=== PATIENT | male | born 1965 | race Caucasian/White ===

== ENCOUNTER 2019-03-06 07:44 | Day surgery (SDC) | payer BC ==
[~2019-03-06] VITALS: Ht 170.2 cm; Wt 207.6 kg
[~2019-03-06 07:44] MED LIST: ATEN25 PO; CLON.1 PO; DIAZ5 PO; KETO10 PO; LOSA25 PO; Prinivil10 MG PO; Toprol Xl25 MG PO
--- NOTE | 2019-03-06 08:17 | NUR ---
03/06/19 0817 Vanessa Price FIRST IV UNSUCCESS IN R HAND SECOND IV SUCCESS IN R HAND
--- NOTE | 2019-03-06 10:34 | NUR ---
03/06/19 Syed4 Jim Blankenship FAXED RX TO PATIENT'S PHARMACY PER HIS REQUEST.
--- NOTE | 2019-03-06 10:40 | NUR ---
03/06/19 1040 Leona Hui LATE ENTRY: DURING UPPER PT COUGHING, PT APNIC T/O, JAW THRUST APPLIED. VSS. AT START OF COLON PT COUGHING, O2 SAT DROPPED DOWN TO MID 70S. ORAL AIRWAY PLACED. 2ND RN FOR AIRWAY SUPPORT REQUESTED. ORSC.OKG & ORSC.RXS INTO ROOM. SWITCHED PT TO NONREBREATHERS AT 10L. PT HAS LOTS OF SECRETIONS. ORALLY SUCTIONED WITH LOTS OF CLEAR SECRETIONS. SEE EMAR FOR MED ADMINSTRATION PER ORDER. PT COUGHING OCCASIONALLY T/O PROCEDURE. OCCASIONAL JAW THRUST/CHIN LIFT PROVIDED FOR AIRWAY SUPPORT. PT VSS STABLE T/O REST OF PROCEDURE WITH O2 SATURATION IN THE MID TO HIGH 90S T/O.
== END 2019-03-06 10:26 | disposition home or self-care (01) ==
LOC: ORSCSDS 07:44
PROVIDERS: Student in an Organized Health Care Education/Training Program
PROC: 0DBP8ZX Excision of Rectum, Via Natural or Artificial Opening Endoscopic, Diagnostic (ICD-10-PCS; principal; 2019-03-06 09:00)
PROC: 0DB58ZX Excision of Esophagus, Via Natural or Artificial Opening Endoscopic, Diagnostic (ICD-10-PCS; principal; 2019-03-06 09:00)
PROC: 0DB68ZX Excision of Stomach, Via Natural or Artificial Opening Endoscopic, Diagnostic (ICD-10-PCS; principal; 2019-03-06 09:00)
PROC: 0DBL8ZX Excision of Transverse Colon, Via Natural or Artificial Opening Endoscopic, Diagnostic (ICD-10-PCS; principal; 2019-03-06 09:00)
PROC: 0DBN8ZX Excision of Sigmoid Colon, Via Natural or Artificial Opening Endoscopic, Diagnostic (ICD-10-PCS; principal; 2019-03-06 09:00)
DX: K21.0 Gastro-esophageal reflux disease with esophagitis (principal); K29.70 Gastritis, unspecified, without bleeding; Z12.11 Encounter for screening for malignant neoplasm of colon; D12.3 Benign neoplasm of transverse colon; K63.5 Polyp of colon; K62.1 Rectal polyp; I10 Essential (primary) hypertension; F17.210 Nicotine dependence, cigarettes, uncomplicated; E66.9 Obesity, unspecified; Z68.35 Body mass index [BMI] 35.0-35.9, adult; Z79.899 Other long term (current) drug therapy
CPT/HCPCS: 88305; 88312; 88342; J2704; J7120

== ENCOUNTER 2019-03-26 23:38 | Emergency (ER) | payer BC ==
[~2019-03-26] VITALS: Ht 167.6 cm; Wt 95.2 kg
[2019-03-27 01:42] LABS: BASOPHILS ABSOLUTE AUTO 0.08 K/mm3 (0.00-0.23); BASOPHILS PERCENT AUTO 1 % (0-2); EOSINOPHILS ABSOLUTE AUTO 0.43 K/mm3 (0.00-0.68); EOSINOPHILS PERCENT AUTO 3 % (0-6); Hematocrit 45.3 % (37.0-53.0); Hemoglobin 15.4 g/dL (13.5-17.5); IMMATURE GRAN ABSOLUTE AUTO 0.07 K/mm3 (0.00-0.10); IMMATURE GRAN PERCENT AUTO 1 % (0-1); LYMPHOCYTES ABSOLUTE AUTO 4.09 K/mm3 (0.84-5.20); LYMPHOCYTES PERCENT AUTO 32 % (21-46); MONOCYTES ABSOLUTE AUTO 1.27 K/mm3 (0.16-1.47); MONOCYTES PERCENT AUTO 10 % (4-13); Mean Corpuscular HGB 31.1 pg (26.0-34.0); Mean Corpuscular Volume 92 fL (80-100); Mean Platelet Volume 11.5 fL (9.1-12.4); NEUTROPHILS PERCENT AUTO 54 % (41-73); Platelet Count 294 K/mm3 (150-400); RDW Coefficient Variation 13.2 % (11.7-14.2); RDW Standard Deviation 44.5 fL (35.1-46.3); Red Blood Cell Count 4.95 M/mm3 (4.30-5.90); White Blood Cell Count 12.94 K/mm3 (4.00-11.30)
[2019-03-27 01:49] LABS: Alanine Aminotransfer (ALT/SGP 58 U/L (12-78); Albumin, Blood 3.5 g/dL (3.4-5.0); Albumin/Globulin Ratio 0.9 (0.8-1.8); Alk Phos 54 U/L (50-136); Anion Gap 6 mmol/L (6-16); Aspartate Aminotrans (AST/SGOT 23 U/L (12-37); Bilirubin, Total 0.3 mg/dL (0.1-1.0); Blood Urea Nitrogen 22 mg/dL (8-24); Bun/Creatinine Ratio 23.7 (12.0-20.0); CO2, Blood 28 mmol/L (21-32); Calcium, Blood 9.2 mg/dL (8.5-10.1); Chloride, Blood 110 mmol/L (98-108); Creatinine, Blood 0.93 mg/dL (0.60-1.20); Globulin, Blood 3.9 g/dL (2.2-4.0); Glomerular Filtration Rate >60 (60-); Glucose, Blood 122 mg/dL (70-99); Potassium, Blood 3.4 mmol/L (3.5-5.5); Sodium, Blood 144 mmol/L (136-145); Total Protein, Blood 7.4 g/dL (6.4-8.2)
[2019-03-27 03:14] LABS: Source, Urine Clean Catch
[2019-03-27 03:16] LABS: Bilirubin, Urine Neg (Neg); Blood, Urine 2+ (Neg); Glucose Qualitative, Urine Neg (Neg); Ketones, Urine Neg (Neg); Leukocyte Esterase, Urine 2+ (Neg); Nitrite, Urine Pos (Neg); Protein, Urine 1+ (Neg); Urobilinogen, Urine NORM (Normal)
[2019-03-27 03:17] LABS: Appearance, Urine Hazy (Clear); Color, Urine Yellow (P-Yellow)
[2019-03-27 03:23] LABS: Bacteria Many /hpf; Red Blood Cells, Urine Rare /hpf (0-2); Squamous Epithelial Cells Not Seen /hpf (Few)
[2019-03-27] MEDS ORDERED: OMEPRAZOLE20 MG (04:28)
[2019-03-27] MEDS ORDERED: Macrobid 100 M100 MG PO (05:56)
== END 2019-03-27 06:22 | disposition home or self-care (01) ==
LOC: ER 23:38
PROVIDERS: Emergency Medicine
DX: N39.0 Urinary tract infection, site not specified (principal); Z88.2 Allergy status to sulfonamides; Z79.899 Other long term (current) drug therapy; F17.200 Nicotine dependence, unspecified, uncomplicated
CPT/HCPCS: 36415; 74176; 80053; 81001; 83605; 83690; 85025; 87040; 87077; 87086; 87186; 93005; 93010; 96365; 96375; 99284-25; J0696; J1885; J7030

== ENCOUNTER → 2019-06-05 | Outpatient (CLI) | payer BC ==
[~2019-06-05] MED LIST changes: +Macrobid 100 M100 MG PO; +OMEPRAZOLE20 MG
[2019-06-05 09:01] LABS: BASOPHILS ABSOLUTE AUTO 0.06 K/mm3 (0.00-0.23); BASOPHILS PERCENT AUTO 1 % (0-2); EOSINOPHILS ABSOLUTE AUTO 0.34 K/mm3 (0.00-0.68); EOSINOPHILS PERCENT AUTO 3 % (0-6); Hematocrit 44.3 % (37.0-53.0); Hemoglobin 15.4 g/dL (13.5-17.5); IMMATURE GRAN ABSOLUTE AUTO 0.08 K/mm3 (0.00-0.10); IMMATURE GRAN PERCENT AUTO 1 % (0-1); LYMPHOCYTES ABSOLUTE AUTO 3.54 K/mm3 (0.84-5.20); LYMPHOCYTES PERCENT AUTO 29 % (21-46); MONOCYTES ABSOLUTE AUTO 0.84 K/mm3 (0.16-1.47); MONOCYTES PERCENT AUTO 7 % (4-13); Mean Corpuscular HGB 31.4 pg (26.0-34.0); Mean Corpuscular HGB Conc 34.8 g/dL (31.5-36.5); Mean Corpuscular Volume 90 fL (80-100); Mean Platelet Volume 11.4 fL (9.1-12.4); NEUTROPHILS ABSOLUTE AUTO 7.18 K/mm3 (1.96-9.15); NEUTROPHILS PERCENT AUTO 60 % (41-73); Platelet Count 270 K/mm3 (150-400); RDW Coefficient Variation 13.5 % (11.7-14.2); RDW Standard Deviation 44.4 fL (35.1-46.3); White Blood Cell Count 12.04 K/mm3 (4.00-11.30)
[2019-06-05 10:45] LABS: Anion Gap 7 mmol/L (6-16); Blood Urea Nitrogen 16 mg/dL (8-24); Bun/Creatinine Ratio 21.8 (12.0-20.0); CO2, Blood 26 mmol/L (21-32); Calcium, Blood 8.4 mg/dL (8.5-10.1); Chloride, Blood 109 mmol/L (98-108); Creatinine, Blood 0.73 mg/dL (0.60-1.20); Glomerular Filtration Rate >60 (60-); Glucose, Blood 168 mg/dL (70-99); Potassium, Blood 4.1 mmol/L (3.5-5.5); Sodium, Blood 142 mmol/L (136-145)
== END ==
LOC: LAB EV 08:57 → LAB SHORT 08:57
PROVIDERS: Physician Assistant Medical
DX: R05 Cough (principal)
CPT/HCPCS: 80048; 85025; 85379

== ENCOUNTER 2019-09-28 12:54 | Emergency (ER) | payer BC ==
[~2019-09-28] VITALS: Ht 167.6 cm; Wt 104.2 kg
[~2019-09-28 12:54] MED LIST changes: -NITR.4SL SL
[2019-09-28] MEDS ORDERED: NITR.4SL SL (19:00)
== END 2019-09-28 15:36 | disposition left against medical advice (07) ==
LOC: ER 12:54
DX: I10 Essential (primary) hypertension (principal)
CPT/HCPCS: 71046; 84484; 93005; 93010; 99283-25

== ENCOUNTER 2019-09-28 16:33 | Emergency (ER) | payer BC ==
[~2019-09-28] VITALS: Ht 167.6 cm; Wt 99.8 kg
[2019-09-28] MEDS ORDERED: NITR.4SL SL (19:00)
== END 2019-09-28 19:09 | disposition home or self-care (01) ==
LOC: ER 16:33
DX: I20.9 Angina pectoris, unspecified (principal); I10 Essential (primary) hypertension; Z88.2 Allergy status to sulfonamides; Z79.899 Other long term (current) drug therapy; F17.200 Nicotine dependence, unspecified, uncomplicated
CPT/HCPCS: 96374; 96375; 99283-25; J1885; J3010

== ENCOUNTER → 2019-09-28 | Outpatient (CLI) | payer BC ==
[~2019-09-28] MED LIST changes: +NITR.4SL SL
[2019-09-28 11:17] LABS: BASOPHILS ABSOLUTE AUTO 0.07 K/mm3 (0.00-0.23); BASOPHILS PERCENT AUTO 1 % (0-2); EOSINOPHILS ABSOLUTE AUTO 0.38 K/mm3 (0.00-0.68); EOSINOPHILS PERCENT AUTO 3 % (0-6); Hematocrit 47.9 % (37.0-53.0); Hemoglobin 16.6 g/dL (13.5-17.5); IMMATURE GRAN ABSOLUTE AUTO 0.05 K/mm3 (0.00-0.10); IMMATURE GRAN PERCENT AUTO 0 % (0-1); LYMPHOCYTES ABSOLUTE AUTO 3.69 K/mm3 (0.84-5.20); LYMPHOCYTES PERCENT AUTO 31 % (21-46); MONOCYTES ABSOLUTE AUTO 1.03 K/mm3 (0.16-1.47); MONOCYTES PERCENT AUTO 9 % (4-13); Mean Corpuscular HGB 31.4 pg (26.0-34.0); Mean Corpuscular HGB Conc 34.7 g/dL (31.5-36.5); Mean Corpuscular Volume 91 fL (80-100); Mean Platelet Volume 11.8 fL (9.1-12.4); NEUTROPHILS ABSOLUTE AUTO 6.86 K/mm3 (1.96-9.15); NEUTROPHILS PERCENT AUTO 57 % (41-73); Platelet Count 269 K/mm3 (150-400); RDW Standard Deviation 43.2 fL (35.1-46.3); Red Blood Cell Count 5.28 M/mm3 (4.30-5.90); White Blood Cell Count 12.08 K/mm3 (4.00-11.30)
[2019-09-28 11:30] LABS: Alanine Aminotransfer (ALT/SGP 80 U/L (12-78); Albumin, Blood 3.7 g/dL (3.4-5.0); Albumin/Globulin Ratio 0.9 (0.8-1.8); Alk Phos 71 U/L (40-126); Anion Gap 9 mmol/L (6-16); Aspartate Aminotrans (AST/SGOT 40 U/L (12-37); Bilirubin, Total 0.5 mg/dL (0.1-1.0); Blood Urea Nitrogen 14 mg/dL (8-24); Bun/Creatinine Ratio 15.6 (12.0-20.0); CO2, Blood 25 mmol/L (21-32); Calcium, Blood 8.6 mg/dL (8.5-10.1); Chloride, Blood 104 mmol/L (98-108); Globulin, Blood 3.9 g/dL (2.2-4.0); Glomerular Filtration Rate >60 (60-); Glucose, Blood 147 mg/dL (70-99); Potassium, Blood 3.9 mmol/L (3.5-5.5); Sodium, Blood 138 mmol/L (136-145); Total Protein, Blood 7.6 g/dL (6.4-8.2)
[2019-09-28 11:32] LABS: Troponin I <0.017 ng/mL (0.000-0.040)
== END | disposition home or self-care (01) ==
LOC: LAB EV 11:13 → LAB SHORT 11:13
PROVIDERS: Physician Assistant
DX: R07.9 Chest pain, unspecified (principal); R73.9 Hyperglycemia, unspecified
CPT/HCPCS: 80053; 83036; 84484; 85025

== ENCOUNTER 2020-12-29 16:40 | Emergency (ER) | payer OTHER ==
[~2020-12-29] VITALS: Ht 167.6 cm; Wt 95.2 kg
[~2020-12-29 16:40] MED LIST changes: -CLON.1 PO; -LOSA25 PO; +NITR.4SL SL
[2020-12-29] MEDS ORDERED: LOSARTAN POTAS100 M1 PO (17:08)
[2020-12-29] MEDS ORDERED: ALPRAZOLAM0.5 M1 PO (17:08)
[2020-12-29 17:09] LABS: Source, Urine Clean Catch
[2020-12-29] MEDS ORDERED: HYDRA50 PO (17:09)
[2020-12-29] MEDS ORDERED: ATORVASTATIN CA20 MG PO (17:09)
[2020-12-29] MEDS ORDERED: CLON.3 PO (17:10)
[2020-12-29] MEDS ORDERED: METHOTREXATE2.5 M2 (17:10)
[2020-12-29] MEDS ORDERED: FOLI1 PO (17:10)
[2020-12-29] MEDS ORDERED: METO100ER PO (17:11)
[2020-12-29 17:34] LABS: BASOPHILS ABSOLUTE AUTO 0.08 K/mm3 (0.00-0.23); BASOPHILS PERCENT AUTO 1 % (0-2); EOSINOPHILS PERCENT AUTO 3 % (0-6); Hematocrit 45.8 % (37.0-53.0); Hemoglobin 16.1 g/dL (13.5-17.5); IMMATURE GRAN ABSOLUTE AUTO 0.04 K/mm3 (0.00-0.10); IMMATURE GRAN PERCENT AUTO 0 % (0-1); LYMPHOCYTES ABSOLUTE AUTO 4.03 K/mm3 (0.84-5.20); LYMPHOCYTES PERCENT AUTO 34 % (21-46); MONOCYTES ABSOLUTE AUTO 0.78 K/mm3 (0.16-1.47); MONOCYTES PERCENT AUTO 7 % (4-13); Mean Corpuscular HGB 31.6 pg (26.0-34.0); Mean Corpuscular HGB Conc 35.2 g/dL (31.5-36.5); Mean Corpuscular Volume 90 fL (80-100); Mean Platelet Volume 11.1 fL (9.1-12.4); NEUTROPHILS ABSOLUTE AUTO 6.68 K/mm3 (1.96-9.15); NEUTROPHILS PERCENT AUTO 56 % (41-73); Platelet Count 300 K/mm3 (150-400); RDW Coefficient Variation 14.3 % (11.7-14.2); RDW Standard Deviation 46.3 fL (35.1-46.3); White Blood Cell Count 12.01 K/mm3 (4.00-11.30)
[2020-12-29 17:55] LABS: Alanine Aminotransfer (ALT/SGP 71 U/L (12-78); Albumin, Blood 3.5 g/dL (3.4-5.0); Alk Phos 72 U/L (50-136); Anion Gap 5 mmol/L (6-16); Aspartate Aminotrans (AST/SGOT 33 U/L (12-37); Bilirubin, Total 0.4 mg/dL (0.1-1.0); Blood Urea Nitrogen 17 mg/dL (8-24); Bun/Creatinine Ratio 22.1 (12.0-20.0); CO2, Blood 26 mmol/L (21-32); Calcium, Blood 8.6 mg/dL (8.5-10.1); Chloride, Blood 107 mmol/L (98-108); Creatinine, Blood 0.77 mg/dL (0.60-1.20); Globulin, Blood 3.6 g/dL (2.2-4.0); Glomerular Filtration Rate >60 (60-); Glucose, Blood 229 mg/dL (70-99); Potassium, Blood 3.4 mmol/L (3.5-5.5); Sodium, Blood 138 mmol/L (136-145); Total Protein, Blood 7.1 g/dL (6.4-8.2)
[2020-12-29 17:56] LABS: Appearance, Urine Clear (Clear); Bilirubin, Urine Neg (Neg); Blood, Urine Neg (Neg); Color, Urine Yellow (P-Yellow); Glucose Qualitative, Urine 3+ (Neg); Ketones, Urine Neg (Neg); Leukocyte Esterase, Urine Neg (Neg); Nitrite, Urine Neg (Neg); Protein, Urine 1+ (Neg); Urobilinogen, Urine NORM (Normal)
[2020-12-29] MEDS ORDERED: TAMS.4ER PO (18:54)
== END 2020-12-29 19:20 | disposition home or self-care (01) ==
LOC: ER 16:40
PROVIDERS: Physician Assistant
DX: R10.9 Unspecified abdominal pain (principal); I10 Essential (primary) hypertension; Z88.2 Allergy status to sulfonamides; Z79.899 Other long term (current) drug therapy
CPT/HCPCS: 36415; 74176; 80053; 85025; 96374; 96375; 96376; 99284-25; A9270; J1885; J2270; J2405; J7030

== ENCOUNTER 2021-06-12 17:19 | Inpatient (IN) | payer OTHER ==
[~2021-06-12] VITALS: Ht 170.2 cm; Wt 96.8 kg
[~2021-06-12 17:19] MED LIST changes: +ALPRAZOLAM0.5 M1 PO; +ATORVASTATIN CA20 MG PO; +CLON.3 PO; +FOLI1 PO; +HYDRA50 PO; +LOSARTAN POTAS100 M1 PO; +METHOTREXATE2.5 M2; +METO100ER PO; +TAMS.4ER PO
[2021-06-12 17:58] LABS: BASOPHILS PERCENT AUTO 1 % (0-2); EOSINOPHILS ABSOLUTE AUTO 0.37 K/mm3 (0.00-0.68); EOSINOPHILS PERCENT AUTO 3 % (0-6); Hematocrit 41.3 % (37.0-53.0); Hemoglobin 14.2 g/dL (13.5-17.5); IMMATURE GRAN ABSOLUTE AUTO 0.05 K/mm3 (0.00-0.10); IMMATURE GRAN PERCENT AUTO 0 % (0-1); LYMPHOCYTES ABSOLUTE AUTO 3.37 K/mm3 (0.84-5.20); LYMPHOCYTES PERCENT AUTO 24 % (21-46); MONOCYTES ABSOLUTE AUTO 0.99 K/mm3 (0.16-1.47); MONOCYTES PERCENT AUTO 7 % (4-13); Mean Corpuscular HGB 30.2 pg (26.0-34.0); Mean Corpuscular HGB Conc 34.4 g/dL (31.5-36.5); Mean Corpuscular Volume 88 fL (80-100); Mean Platelet Volume 10.3 fL (9.1-12.4); NEUTROPHILS ABSOLUTE AUTO 9.31 K/mm3 (1.96-9.15); NEUTROPHILS PERCENT AUTO 66 % (41-73); Platelet Count 510 K/mm3 (150-400); RDW Coefficient Variation 12.4 % (11.7-14.2); RDW Standard Deviation 39.9 fL (35.1-46.3); White Blood Cell Count 14.19 K/mm3 (4.00-11.30)
[2021-06-12 18:21] LABS: Alanine Aminotransfer (ALT/SGP 44 U/L (12-78); Albumin, Blood 3.4 g/dL (3.4-5.0); Albumin/Globulin Ratio 0.8 (0.8-1.8); Alk Phos 112 U/L (50-136); Anion Gap 9 mmol/L (6-16); Aspartate Aminotrans (AST/SGOT 29 U/L (12-37); Bilirubin, Total 0.2 mg/dL (0.1-1.0); Blood Urea Nitrogen 19 mg/dL (8-24); Bun/Creatinine Ratio 20.6 (12.0-20.0); CO2, Blood 22 mmol/L (21-32); Calcium, Blood 8.8 mg/dL (8.5-10.1); Chloride, Blood 108 mmol/L (98-108); Creatinine, Blood 0.92 mg/dL (0.60-1.20); Globulin, Blood 4.3 g/dL (2.2-4.0); Glomerular Filtration Rate >60 (60-); Glucose, Blood 160 mg/dL (70-99); Potassium, Blood 4.1 mmol/L (3.5-5.5); Sodium, Blood 139 mmol/L (136-145); Total Protein, Blood 7.7 g/dL (6.4-8.2)
[2021-06-12] MEDS ORDERED: ZOFRAN4 MG PO ×2 (19:19→22:21)
[2021-06-12 20:56] LABS: International Normalized Ratio 1.01; Prothrombin Time Results 10.9 Sec (9.7-11.5)
[2021-06-12] MEDS ORDERED: OXYC5 PO (21:16)
[2021-06-12] MEDS ORDERED: Methocarbamol500 MG PO (22:21)
[2021-06-13 02:11] LABS: SARS-Cov-2 (COVID-19) PCR, MMC NEGATIVE (NEGATIVE)
[2021-06-13 06:03] LABS: CHOL/HDL RATIO 5.6; Cholesterol 180 mg/dL (50-200); HDL Cholesterol 32 mg/dL (>39); LDL/HDL RATIO 3.5; Low Density Lipoprotein Chol 111 mg/dL (0-110); Triglycerides 187 mg/dL (30-160); Very Low Density Lipoprot Chol 37 mg/dL (6-32)
--- NOTE | 2021-06-13 14:34 | NUR ---
ADMIT TO 224, DENIES CP, SOB, OR ASSOCIATED SX AT THIS TIME. TLSO IN ROOM BUT NOT ON PATIENT AT HIS REQUEST, RECENT SPINE SURGERY. FORENSIC PATHOLOGIST BILATERAL EQUAL, NOT STRONG. PLANTAR FLEXION AND DORSI FLEXION PRESENT BUT WEAKER ON RIGHT THAN LEFT. PATIENT REPORTS THIS NORMAL EVEN PRIOR TO SURGERY. HAS NUMBNESS TO SECOND TOE ON BOTH FEET MORE SO ON RIGHT THAN LEFT.
--- NOTE | 2021-06-13 16:09 | NUR ---
PT ADMIT TO SURG 224. ON ROOM AIR SATING ABOVE 94%. TELE SHOWING SINUS GABO WITH HR 50'S. WHEN PATIENT SLEEPING HR DIPPED DOWN TO 35. DENIES DIZZINESS. ACTIVE CHEST PAIN WITH MOVEMENT. CHEST PAIN DESCRIBED SHARP, SHOOTING, AND PRESSURE. VITAL SIGNS STABLE. PLAN FOR ANGIOGRAM. CALL PLACED TO UPDATE . BOWEL TONES PRESENT. DENIES ISSUES WITH BOWEL MOVMENTS. SKIN C/D/I. SCAR TO LOWER BACK FROM RECENT BACK SURGERY 05/26/21. RESIDUAL NUMBNESS/TINGLING IN LOWER EXTREMITIES FROM BACK SURGERY. PATIENT STATES RIGHT FOOT AND LOWER LEG WORSE THAN LEFT SIDE. RIGHT FOOT WEAKNESS COMPARED TO LEFT. STRONG PULSES. HEPARIN INFUSING. CALL LIGHT IN REACH. NPO AT THIS TIME FOR ANGIO. WILL CONTINUE TO MONITOR.
--- NOTE | 2021-06-13 18:49 | NUR ---
SEE PREVIOUS NOTE FOR UPDATES. CHEST PAIN DIMINISHED WITH EMAR PRN MEDICATIONS. SLEEPING ON AND OFF. CHEST PAIN REMAINS UNCHANGED IN CHARACTERISTICS. NO NEW CHANGES ON TELE. PT REMAINS SINUS-SINUS GABO WITH HR 40-60'S. SOB WITH CHEST PAIN. COMPLAINS OF LOWER BACK PAIN. HOME MUSCLE SPASMS ORDERED PRN. AT THIS TIME PATIENT SLEEPING. VITAL SIGNS STABLE. WILL CONTINUE TO MONITOR AND REPORT OFF.
--- NOTE | 2021-06-13 20:47 | NUR ---
HOME MEDS PT REPORTS TAKING HIS OWN HOME MED "XANAX". MED IS ON ORDER BUT IS LISTED DAILY 0900. PT REPORTS HE TAKES IT AT BEDTIME/PRN FOR ANXIETY ATTACKS.
--- NOTE | 2021-06-13 23:29 | NUR ---
HEPARIN ADJUSTED DOSE PER PHARMACY ORDER TO 17 U/KG/HR
--- NOTE | 2021-06-14 06:53 | NUR ---
SHIFT SUMMARY S/P NSTEMI, A/O X4, VSS, INDEPENDENT IN ROOM, PT REPORTS NO CHEST PAIN THIS SHIFT BUT STATED HE HAD "MILD CHEST PRESSURE" AT THE START OF THE SHIFT. PT REPORTS HIS BP IS USUALLY 160-180 SYSTOLIC AND 80-110 DIASTOLIC, CURRENT BP IS BETTER. PT APPEARS ANXIOUS REPORTING HE WILL LEAVE AMA IF HIS PROCEDURE IS NOT DONE EARLY THIS MORNING, PT STATES HE IS NOT PATIENT. NO ACUTE CHANGES THIS SHIFT. CALL LIGHT IN REACH, WILL CTM AND REPORT TO DAY RN.
--- NOTE | 2021-06-14 08:30 | NUR ---
PATIENT ALERT AND ORIENTED X4. ON ROOM AIR. TELE SHOWING SINUS WITH HR 70'S. MILD CHEST PAIN RELIEVED WITH NITRO. PATIENT STATES CHEST PAIN IMPROVING OVERALL. VITAL SIGNS STABLE. NITRO PASTE TO RIGHT CHEST. COMPLAINS OF LOWER BACK PAIN FROM LUMBAR FUSION May. WEARS BACK BRACE WHEN AMBULATING. MEDICATED PER EMAR. PATIENT AMBULATED THIS AM AROUND UNIT. HEPARIN DRIP INFUSING. BOWEL TONES PRESENT. BOWEL MOVEMENT THIS AM. NUMBNESS AND TINGLING IN LOWER EXTREMITIES, MORE SO RIGHT FOOT/LEG FROM BACK SURGERY. PLAN FOR ANGIOGRAM TODAY. WILL CONTINUE TO MONITOR.
--- NOTE | 2021-06-14 10:13 | NUR ---
PT TO [facility] FOR ANGIOGRAM
--- NOTE | 2021-06-14 14:11 | NUR ---
PATIENT RETURN FROM [facility] AND BARGE [facility]AD[facility] AT 1115. VITAL SIGNS STABLE. RIGHT RADIAL SITE, WNL. TR BAND IN PLACE. SITE REMAINS SOFT, NONTENDER. NO SIGNS OF BLEEDING OR HEMATOMA. RADIAL PULSE STRONG. POST OP VITAL SIGNS IN PLACE. HEPARIN TO RESTART AT 1600 PER ORDERS. CONFIRMED WITH PHARMACY. PT SLEEPING AT THIS TIME. WILL CONTINUE TO MONITOR.
--- NOTE | 2021-06-14 18:50 | NUR ---
NO ACUTE CHANGES. HEPARIN INFUSING. STARTED AT 1600 PER ORDERS. TO REMAIN ON TILL 0700 ON 06/15. 1 BAG TOTAL OF NS INFUSING AT THIS TIME. PATIENT SLEEPING ON AND OFF. RIGHT RADIAL SITE WNL. TEGADERM AND ARM BOARD IN PLACE. PATIENT STATES IT FEELS LIKE BRUISE. DENIES NEEDS AT THIS TIME. WILL CONTINUE TO MONITOR AND REPORT OFF.
--- NOTE | 2021-06-14 20:27 | NUR ---
ASSUMED CARE PT IS ALERT AND ORIENTED. VITALS STABLE. DENIES CHEST PAIN OR SOB. OM ROOM AIR. PT IS ANXIOUS TO GO HOME. HEPARIN RUNNING PER ORDER. CALL LIGHT IS WITHIN REACH. WILL CONTINUE TO MONITOR.
--- NOTE | 2021-06-15 06:08 | NUR ---
SHIFT SUMMARY PT IS ALERT AND ORIENTED. VITALS ARE STABLE AND ON ROOM AIR. THERE HAVE BEEN NO ACUTE CHANGES. PT IS ANXIOUS AND WANTING TO GO HOME. STATED THAT HE WILL "JUST LEAVE" IF NOT DC'D BY NOON. P/T HAS REPORTED CHEST PAIN OF 5/10 WELL LOW BACK PAIN DUE TO SURGERY ON 05/26/21. PT IS ABLE TO AMBULATE TO BATHROOM. HEPARIN INFUSING PER ORDER. CALL LIGHT IS WITHIN REACH.
--- NOTE | 2021-06-15 11:24 | NUR ---
PT ALERT AND ORIENTED X4. ON ROOM AIR. TELE SHOWING SINUS GABO WITH HR 50'S. DENIES CHEST PAIN/PRESSURE THIS AM. POST ANGIO, NO STENTS. RIGHT RADIAL SITE WNL. TEGADERM AND ARM BOARD IN PLACE. COMPLAINS OF BACK PAIN, CHRONIC POST LUMBAR FUSION ON May. MANAGING PER EMAR. RESIDUAL N/T TO LOWER EXTREMITIES/FEET. BOWEL TONES PRESENT. UP WITH SBA TO BATHROOM. PLAN TO DISCHARGE TODAY. CALL LIGHT IN REACH. DENIES NEEDS.
[2021-06-15] MEDS ORDERED: Aspir 8181 MG PO (11:44)
--- NOTE | 2021-06-15 13:02 | NUR ---
PT DISCHARGED. DISCHARGE WNL. NO ACUTE CHANGES. DISCHARGE INSTRUCTIONS REVIEWED. IV TAKEN OUT PER PROTOCOL. POST ANGIO SITE CARE AND RESTRICTIONS REVIEWED. ARM BOARD IN PLACE. SITE WNL. VITAL SIGNS STABLE. PATIENT LEFT UNIT VIA WHEELCHAIR WITH ALL PERSONAL BELONGINGS.
== END 2021-06-15 12:21 | disposition home or self-care (01) | DRG 282 ==
LOC: ER 17:19 → ERHOLD 21:16 → SURS 21:16
PROVIDERS: Emergency Medicine; ADMIT Internal Medicine
PROC: B2111ZZ Fluoroscopy of Multiple Coronary Arteries using Low Osmolar Contrast (ICD-10-PCS; principal; 2021-06-14)
PROC: B2161ZZ Fluoroscopy of Right and Left Heart using Low Osmolar Contrast (ICD-10-PCS; 2021-06-14)
PROC: 4A033BC Measurement of Arterial Pressure, Coronary, Percutaneous Approach (ICD-10-PCS; 2021-06-14)
PROC: 4A023N7 Measurement of Cardiac Sampling and Pressure, Left Heart, Percutaneous Approach (ICD-10-PCS; 2021-06-14)
DX: I21.4 Non-ST elevation (NSTEMI) myocardial infarction (principal); Z20.822 Contact with and (suspected) exposure to COVID-19; I10 Essential (primary) hypertension; E11.9 Type 2 diabetes mellitus without complications; I25.119 Atherosclerotic heart disease of native coronary artery with unspecified angina pectoris; R45.1 Restlessness and agitation; M54.5 Low back pain; E78.5 Hyperlipidemia, unspecified; Z87.891 Personal history of nicotine dependence; Z90.49 Acquired absence of other specified parts of digestive tract; Z98.1 Arthrodesis status; Z88.2 Allergy status to sulfonamides; Z79.899 Other long term (current) drug therapy
CPT/HCPCS: 36415; 71045; 71260; 76937; 80053; 80061; 83036; 84484; 85025; 85347; 85379; 85610; 85730; 93005; 93010; 93306; 93454; 93571; 96374-59; 96375-59; 99152; 99153; 99285-25; A9270; C1769; C1887; C1894; J1170; J1200; J1644; J2001; J2060; J2250; J2270; J3010; J7030; J7050; Q9967; U0004

== ENCOUNTER 2021-06-25 16:48 | Observation (INO) | payer OTHER ==
[~2021-06-25] VITALS: Ht 167.6 cm; Wt 92.1 kg
[~2021-06-25 16:48] MED LIST changes: +Aspir 8181 MG PO; +Methocarbamol500 MG PO; +OXYC5 PO; +ZOFRAN4 MG PO
[2021-06-25 17:32] LABS: BASOPHILS ABSOLUTE AUTO 0.09 K/mm3 (0.00-0.23); BASOPHILS PERCENT AUTO 1 % (0-2); EOSINOPHILS ABSOLUTE AUTO 0.23 K/mm3 (0.00-0.68); EOSINOPHILS PERCENT AUTO 2 % (0-6); Hemoglobin 13.6 g/dL (13.5-17.5); Mean Corpuscular HGB 29.6 pg (26.0-34.0); Mean Corpuscular Volume 87 fL (80-100); Platelet Count 353 K/mm3 (150-400); RDW Coefficient Variation 12.8 % (11.7-14.2); RDW Standard Deviation 40.4 fL (35.1-46.3); Red Blood Cell Count 4.59 M/mm3 (4.30-5.90); White Blood Cell Count 14.01 K/mm3 (4.00-11.30)
[2021-06-25 17:33] LABS: IMMATURE GRAN ABSOLUTE AUTO 0.04 K/mm3 (0.00-0.10); IMMATURE GRAN PERCENT AUTO 0 % (0-1); LYMPHOCYTES ABSOLUTE AUTO 4.01 K/mm3 (0.84-5.20); LYMPHOCYTES PERCENT AUTO 29 % (21-46); MONOCYTES ABSOLUTE AUTO 0.96 K/mm3 (0.16-1.47); MONOCYTES PERCENT AUTO 7 % (4-13); NEUTROPHILS ABSOLUTE AUTO 8.68 K/mm3 (1.96-9.15); NEUTROPHILS PERCENT AUTO 62 % (41-73)
[2021-06-25 17:55] LABS: Alanine Aminotransfer (ALT/SGP 49 U/L (12-78); Albumin, Blood 3.5 g/dL (3.4-5.0); Albumin/Globulin Ratio 0.9 (0.8-1.8); Alk Phos 83 U/L (50-136); Anion Gap 7 mmol/L (6-16); Aspartate Aminotrans (AST/SGOT 26 U/L (12-37); Bilirubin, Total 0.3 mg/dL (0.1-1.0); Blood Urea Nitrogen 19 mg/dL (8-24); Bun/Creatinine Ratio 19.3 (12.0-20.0); CO2, Blood 24 mmol/L (21-32); Calcium, Blood 8.3 mg/dL (8.5-10.1); Chloride, Blood 109 mmol/L (98-108); Creatinine, Blood 0.98 mg/dL (0.60-1.20); Glomerular Filtration Rate >60 (60-); Glucose, Blood 137 mg/dL (70-99); Potassium, Blood 3.4 mmol/L (3.5-5.5); Sodium, Blood 140 mmol/L (136-145); Total Protein, Blood 7.5 g/dL (6.4-8.2); Troponin I <0.015 ng/mL (0.000-0.040)
[2021-06-25] MEDS ORDERED: ESOM20 PO (18:05)
[2021-06-25] MEDS ORDERED: Norco 10-325 T1 EACH PO (18:05)
[2021-06-25 18:32] LABS: International Normalized Ratio 1.06; Prothrombin Time Results 11.4 Sec (9.7-11.5)
[2021-06-25] MEDS ORDERED: DUPIXENT P300 MG/2 M SC (19:08)
[2021-06-25] MEDS ORDERED: TAMS.4ER PO (19:09)
[2021-06-25] MEDS ORDERED: HYDROCODONE-AC1 EAC7 PO (19:11)
[2021-06-25 23:28] LABS: SARS-Cov-2 (COVID-19) PCR, MMC NEGATIVE (NEGATIVE)
--- NOTE | 2021-06-26 00:30 | NUR ---
PT ADMITTED TO ROOM PCU 3 UNDER ICU STATUS. ARRIVES TO ROOM AT 2345. HAS HEPARIN DRIP INFUSING, AND NITRO DRIP AT 5 MCG'S. PT STATES HIS CHEST PAIN IS LEFT SIDED AND RADIATES. PT PAINFUL TO PALPATION OF LEFT CHEST. WITH RESISTANCE TO CHEST AND HAVING PT TAKE DEEP BREATH, THIS ELICITS INCREASE IN CHEST PAIN. HAVE BEEN ABLE TO REPRODUCE PAIN. PT CLAIMS PAIN IS "JABBING" AND "STABBING" IN NATURE. NO ASSOCIATED NAUSEA. WILL REVIEW CHART AND PLAN OF CARE FOR THIS PT.
--- NOTE | 2021-06-26 02:45 | NUR ---
PT HAS BEEN MEDICATED WITH 4 MG MORPHINE, AND 0.5 MG XANAX WITH MODERATE RELIEF. HAS MAINTAINED ELEVATED BLOOD PRESSURE. PT STATES HIS CHEST PAIN IS CURRENTLY 5/10. MEDICATED PT WITH 10/325 MG HYDROCODONE. HAVE INCREASED NITRO TO 20/HR. SUBSEQUENT TROPONIN CONTINUES TO BE NEGATIVE. PT HAS REMAINED ANXIOUS. HAVE ATTEMPTED TO REASSURE PT. MEDICATED WITH ROBAXIN FOR SPASM TYPE PAIN TO LEFT CHEST. WILL CONTINUE TO MONITOR.
--- NOTE | 2021-06-26 06:30 | NUR ---
PT HAS SHORT RUN OF UNSUSTAINED V-TACH. PT ASYMPTOMATIC WITH THIS. STATES HE WAS ABLE TO GET A "LITTLE SLEEP" THIS NIGHT. PT STATES HIS CHEST DISCOMFORT IS CURRENTLY 4/10. NITRO DRIP AT 15 MCG'S. HEPARIN DRIP CONTINUES. WILL CONTINUE TO MONITOR PT, AND WILL REPORT OFF TO ONCOMING RN.
--- NOTE | 2021-06-26 09:20 | NUR ---
PT REPORTS INCREASING CHEST DISCOMFORT 5/10, RADIATES TO BACK, INCREASES WITH INSPIRATION; NTG DRIP INCREASED TO 20 MCG/MIN.
--- NOTE | 2021-06-26 09:55 | NUR ---
PT REPORTS CHEST PAIN REMAINS 5/10 WITH NTG DRIP INCREASE AND WORSENING HEADACHE 9/10; ADMINISTERED 2 MG IV MORPHINE AND 1 NORCO 10/325MG.
--- NOTE | 2021-06-26 10:00 | NUR ---
ASSUMED CARE: REPORT RECEIVED FROM LELA Genao RN. ASSUMED CARE OF THIS PT AT APPROX 0700. THE PT IS A&O TO ALL, COOPERATIVE W/ CARE BUT EXPRESSES FEELING "FRUSTRATED." HE REPORTS CP THAT IS WORSE W/ STERNAL PALPATION & WORSE W/ DEEP INSPIRATION. MEDS PER EMAR. NITROGLYCERIN & HEPARIN DRIPS INFUSING PER EMAR, SEE FLOWSHEET FOR TITRATION. LS CLEAR T/O, PT ON RA W/ O2 SATS > 92%. MONITOR SHOWS SB-SR W/ HR 50-60s. PT HYPERTENSIVE W/ INCREASED AGITATION. SBP 90s AFTER MEDS PER EMAR. PT NPO R/T PENDING CARDIO CONSULT. PT VOIDS W/O DIFFICULTY USING URINAL AT BEDSIDE. SKIN CONDITION OVERALL CDI & PT REPOSITIONS SELF IN BED. WILL CONTINUE TO MONITOR & UPDATE NEEDED.
--- NOTE | 2021-06-26 10:17 | NUR ---
PT REPORTS CHEST PRESSURE 4/10 POST MORPHINE AND HEADACHE IMPROVING AFTER NORCO.
--- NOTE | 2021-06-26 14:50 | NUR ---
Echocardiogram completed.
--- NOTE | 2021-06-26 18:17 | NUR ---
SHIFT SUMMARY: THIS RN HAS SPOKEN W/ DR HOLDEN DIRECTLY REGARDING CARDIO CONSULT THAT WAS ACCIDENTALLY DISCONTINUED BY PROVIDER DR ESCOBEDO THIS SHIFT. HE HAS PLACED ORDERS FOR CT-PE STUDY & F/U LABS, HE WILL SEE THE PT TOMORROW AM. NO ACUTE CHANGES SINCE PRIOR UPDATES. PT REMAINS A&O, COOPERATIVE W/ CARE BUT BECOMES EASILY FRUSTRATED & STS "WANTING TO GO HOME." INTERMITTENT C/O CP THAT IS MUSCULOSKELETAL IN NATURE, RESOLVED W/ PAIN MEDS PER EMAR. LS CLEAR, PT ON RA W/ O2 SATS > 92%. MONITOR SHOWS SR W/ HR 80-90s, HYPOTENSION IMPROVED SINCE NITROGLYCERIN DRIP D/C'd. PER DR ESCOBEDO, THE PT IS NOW MEDICAL W/ TELE STATUS. HE HAS BEEN ALLOWED TO EAT THIS EVENING & IS TOLERATING PO INTAKE WELL, HAS NO GI COMPLAINTS. VOIDS W/O DIFFICULTY USING URINAL AT BEDSIDE. URINE IS DARK & CONCENTRATED, PO FLUIDS ENCOURAGED. SKIN CONDITION OVERALL CDI, PT REPOSITIONING SELF APPROX Q2H W/O STAFF ASSISTANCE FOR COMFORT. WILL CONTINUE TO MONITOR & REPORT OFF TO ONCOMING RN.
--- NOTE | 2021-06-26 20:00 | NUR ---
ASSUMED CARE OF PT AT 1915. PT PRESENTS IN ROOM VISITIING WITH HIS . STATES THAT HIS CHEST DISCOMFORT IS IMPROVED. DID STATE THAT WHEN HE IS GOING TO SLEEP TONIGHT THAT HE WANTS TO TAKE HIS NORCO 10/325 MG, XANAX, ROBAXIN, AND HAS REQUESTED TO HAVE FULL DOSE OF MORPHINE TO HELP HIM FALL ASLEEP. TEACHING DONE ON PROPER USE OF PRN MEDICATIONS. PT VOICES THAT HE UNDERSTANDS THAT THE MORPHINE IS RESERVED FOR CHEST PAIN. THE NORCO, AND ROBAXIN IS WHAT HE HAS FOR HOME MED SECONDARY TO BACK SURGERY. WILL REVIEW CHART AND PLAN OF CARE FOR THIS PT.
--- NOTE | 2021-06-27 03:49 | NUR ---
PT AWAKE AT THIS TIME. VITALS DONE. PT DOES REQUEST HIS ROBAXIN AND NORCO 10/325MG. STATES HIS BACK IS PAINFUL. WILL PROVIDE THIS FOR PT.
--- NOTE | 2021-06-27 08:24 | NUR ---
CARE ASSUMPTION PATIENT A/O X4. PATIENT IS ANXIOUS AND STATES HE SI READY TO GO HOME. VSS. TELE SR 70S. PATIENT DENIES CHEST PAIN AND SHORTNESS OF BREATH. PATIENT STATES MILD PAIN IN BACK, REPOSITIONED HELPED REDUCE PAIN. PATIENT EDUCATED ON MORNING MEDS AND THE PLAN FOR THE DAY. PATIENT HAD EKG DONE THIS AM, THAT SHOWED SR. PATIENT IS SITTING IN BED WITH BREAKFAST, CALL LIGHT WITHIN REACH, AND BED IN LOWEST POSTION. WILL CONTINUE TO MONITOR AND PROVIDE CARE.
[2021-06-27] MEDS ORDERED: DEXA4 PO (09:53)
== END 2021-06-27 10:42 | disposition home or self-care (01) ==
LOC: ER 16:48 → ERHOLD 16:49 → PCU 16:49
PROVIDERS: Emergency Medicine; ADMIT Internal Medicine
DX: I31.9 Disease of pericardium, unspecified (principal); I10 Essential (primary) hypertension; E11.9 Type 2 diabetes mellitus without complications; I25.10 Atherosclerotic heart disease of native coronary artery without angina pectoris; E87.6 Hypokalemia; Z88.2 Allergy status to sulfonamides; Z87.891 Personal history of nicotine dependence; Z20.822 Contact with and (suspected) exposure to COVID-19
CPT/HCPCS: 36415; 71045; 71260; 80053; 84484; 85025; 85379; 85610; 85651; 85730; 86140; 93005; 93010; 93308; A9270; C9113; J1644; J2270; J2930; J3480; Q9967; U0004

== ENCOUNTER → 2023-04-04 | Outpatient (CLI) | payer OTHER ==
[~2023-04-04] MED LIST changes: +DEXA4 PO; +DUPIXENT P300 MG/2 M SC; +ESOM20 PO; +HYDROCODONE-AC1 EAC7 PO; +Norco 10-325 T1 EACH PO
== END ==
LOC: LAB 10:11 → LAB SHORT 10:11
DX: N39.0 Urinary tract infection, site not specified (principal)
CPT/HCPCS: 87086; 87147

== ENCOUNTER 2024-01-23 08:07 | Emergency (ER) | payer OTHER ==
[~2024-01-23] VITALS: Ht 167.6 cm; Wt 81.7 kg
[2024-01-23 09:02] VITALS: BP 166/117
[2024-01-23] MEDS ORDERED: Ketorolac Tromethamine 30mg Vial IM ONE (09:05)
[2024-01-23] MEDS ORDERED: Methocarbamol 500 MG Tab PO ONE (09:05)
[2024-01-23] MEDS ORDERED: Azithromycin 250 MG Tab PO ONE (09:15)
[2024-01-23] MEDS ORDERED: Zithromax250 MG PO (09:47)
[2024-01-23] MEDS ORDERED: Robaxin750 MG PO (09:47)
[2024-01-23] MEDS ORDERED: IBUP800 PO (09:47)
== END 2024-01-23 10:12 | disposition home or self-care (01) ==
LOC: ER 08:07
DX: A04.5 Campylobacter enteritis (principal); M54.50 Low back pain, unspecified; Z88.2 Allergy status to sulfonamides; Z79.899 Other long term (current) drug therapy; Z79.82 Long term (current) use of aspirin; I10 Essential (primary) hypertension; E11.9 Type 2 diabetes mellitus without complications; I25.2 Old myocardial infarction; F17.210 Nicotine dependence, cigarettes, uncomplicated
CPT/HCPCS: 96372; 99282-25; A9270; J1885

== ENCOUNTER 2024-06-15 11:48 | Emergency (ER) | payer OTHER ==
[~2024-06-15] VITALS: Ht 170.2 cm; Wt 81.7 kg
[~2024-06-15 11:48] MED LIST changes: +HYDROCODONE-AC1 EA19 PO; +IBUP800 PO; +PRED20 PO; +Robaxin750 MG PO; +TRULICITY0.75 MG/01 SQ; +Zithromax250 MG PO
[2024-06-15 12:04] VITALS: BP 177/149
[2024-06-15 12:21] LABS: BASOPHILS ABSOLUTE AUTO 0.07 K/mm3 (0.00-0.23); BASOPHILS PERCENT AUTO 1 % (0-2); EOSINOPHILS ABSOLUTE AUTO 0.26 K/mm3 (0.00-0.68); EOSINOPHILS PERCENT AUTO 2 % (0-6); Hematocrit 47.2 % (37.0-53.0); Hemoglobin 15.9 g/dL (13.5-17.5); IMMATURE GRAN ABSOLUTE AUTO 0.05 K/mm3 (0.00-0.10); IMMATURE GRAN PERCENT AUTO 0 % (0-1); LYMPHOCYTES ABSOLUTE AUTO 3.76 K/mm3 (0.84-5.20); LYMPHOCYTES PERCENT AUTO 27 % (21-46); MONOCYTES ABSOLUTE AUTO 1.03 K/mm3 (0.16-1.47); MONOCYTES PERCENT AUTO 7 % (4-13); Mean Corpuscular HGB 30.1 pg (26.0-34.0); Mean Corpuscular HGB Conc 33.7 g/dL (31.5-36.5); Mean Corpuscular Volume 89 fL (80-100); Mean Platelet Volume 11.4 fL (9.1-12.4); NEUTROPHILS ABSOLUTE AUTO 8.75 K/mm3 (1.96-9.15); NEUTROPHILS PERCENT AUTO 63 % (41-73); Platelet Count 271 K/mm3 (150-400); RDW Standard Deviation 42.7 fL (35.1-46.3); Red Blood Cell Count 5.28 M/mm3 (4.30-5.90); White Blood Cell Count 13.92 K/mm3 (4.00-11.30)
[2024-06-15 12:44] LABS: Albumin, Blood 3.1 g/dL (3.4-5.0); Albumin/Globulin Ratio 0.8 (0.8-1.8); Bilirubin, Total 0.2 mg/dL (0.1-1.0); Bun/Creatinine Ratio 19.7 (12.0-20.0); Calcium, Blood 8.9 mg/dL (8.5-10.1); Creatinine, Blood 0.92 mg/dL (0.60-1.20); Globulin, Blood 3.8 g/dL (2.2-4.0); Potassium, Blood 3.6 mmol/L (3.5-5.5); Total Protein, Blood 6.9 g/dL (6.4-8.2)
== END 2024-06-15 13:57 | disposition left against medical advice (07) ==
LOC: ER 11:48
PROVIDERS: Physician Assistant
DX: K92.1 Melena (principal); Z53.29 Procedure and treatment not carried out because of patient's decision for other reasons
CPT/HCPCS: 80053; 85025; 99281

== ENCOUNTER → 2024-07-12 | Outpatient (CLI) | payer OTHER ==
[~2024-07-12] MED LIST changes: +ASPIR 8181 M1; +OMEP20ER
[2024-07-19 23:17] LABS: OVA AND PARASITE,FECAL INTERP Negative (Negative)
== END ==
LOC: LAB SHORT 09:18 → LAB 09:18 → LAB FUT 07-06 14:40
PROVIDERS: Nurse Practitioner Family
DX: Z11.8 Encounter for screening for other infectious and parasitic diseases (principal); R19.7 Diarrhea, unspecified
CPT/HCPCS: 87177; 87209

== ENCOUNTER → 2024-07-17 | Outpatient (CLI) | payer OTHER ==
[2024-07-22 07:33] LABS: OVA AND PARASITE,FECAL INTERP Negative (Negative)
== END ==
LOC: LAB 10:16 → LAB SHORT 10:16
PROVIDERS: Nurse Practitioner Family
DX: Z11.8 Encounter for screening for other infectious and parasitic diseases (principal); R19.7 Diarrhea, unspecified
CPT/HCPCS: 87177; 87209

== ENCOUNTER 2024-07-18 14:09 | Day surgery (SDC) | payer OTHER ==
[~2024-07-18] VITALS: Ht 167.6 cm; Wt 83.3 kg
[~2024-07-18 14:09] MED LIST changes: -ASPIR 8181 M1; +Lactated Ringer's 1,000 ML IV ONE; +Lidocaine 2% 5 ML SDV ONE; +Lidocaine HCl/Pf 1% 5 ML VIAL ONE; -OMEP20ER
[2024-07-18] MEDS ORDERED: ASPIR 8181 M1 (14:25)
[2024-07-18] MEDS ORDERED: OMEP20ER (14:26)
[2024-07-18] MEDS ORDERED: propofoL 50 ML IV ONE ×2 (14:31→15:38)
[2024-07-18] MEDS ORDERED: Lactated Ringer's 1,000 ML IV ONE (14:49)
--- NOTE | 2024-07-18 17:58 | NUR ---
07/18/24 1758 Ernie Aguiar LATE ENTRY D/T RN DIRECT PT CARE FOR PT SAFETY: RN DURING THIS NOTE IS REFERRING TO THIS RN, ERNIE AGUIAR. PT IMMEDIATELY BROUGHT INTO SDU TO .PT STATED IN PRE-OP HX OF PTSD REQUESTED TO BE WITH IMMEDIATELY TO HELP WITH SYMPTOMS. , RYAN, AT BEDSIDE. PT WAS CALM AND COOPERATIVE DURING INITIAL ASSESSMENT. DR. RICHARDS CAME INTO SDU ROOM TO DISCUSS FINDINGS FROM COLONOSCOPY. DURING DISCUSSION, DR. RICHARDS MENTIONED NO EVIDENCE OF PARACITES FOUND DURING COLONOSCOPY. PT APPEARED VERY UPSET, THRASHING IN BED AND YELLING "THEN WHAT IS IN MY POOP, I POOP EVERYDAY 6-7 TIMES A DAY. I SEE THEM IN MY POOP, I HAVE SHOWN YOU THE PHOTOS. WHY DOESN'T ANYONE BELIEVE ME." PROCEEDED TO TALK TO PATIENT, ASKING HIM TO "PLEASE CALM DOWN AND LISTEN TO THE DOCTOR." PT SLIGHTLY CALMED DOWN ENOUGH TO LISTEN TO THE MD FINISH TALKING ABOUT THE FINDINGS FROM THE COLONOSCOPY. DURING THIS CONVERSATION, THE PT STATED TO , "THAT IS IT, I'M DONE. I AM ALWAYS IN SO MUCH PAIN AND I AM GOING TO KILL MYSELF TODAY, I'M DONE." PT THREATENED TO REMOVE IV HIMSELF AND WANTED TO LEAVE "RIGHT NOW", AND RN WAS ABLE TO CALM PT DOWN ENOUGH TO ALLOW RN TO REMOVE IV. DR. RICHARDS WAS ABLE TO FINISH HIS DISCUSSION WITH AND PT. AFTER MD LEFT THE ROOM, RN WAS ABLE TO FINISH POST-OP ASSESSMENT, PT WAS COOPERATIVE, BUT VERY EXPRESSIVE AND VERBALLY STATING "I HAVE A GUN, AND I INTEND TO USE IT TONIGHT. I HAVE A BULLET WITH MY NAME ON IT." DENIED STATING TO PATIENT, "NO YOU DO NOT, MIC, DON'T SAY THAT." PT STATED, "I DO, I PUT MY NAME ON IT, AND I AM GOING TO KILL MYSELF. I CAN NOT TAKE THIS ANYMORE, I AM IN PAIN AND NO ONE BELIEVES ME. I SEE THEM, I SEE THEM EVERYDAY IN MY POOP. AND THE PAIN, I CAN'T TAKE IT ANYMORE. YOU KNOW I HAVE A GUN." AT ONE POINT PT LOOKED AT , PLACED FINGERS IN HIS MOUTH LIKE A GUN AND SAID, "I WILL DO IT." PT STARTED CRYING AND STATED TO , "I CAN'T DO THIS ANYMORE, YOU NEED TO TAKE ME TO [facility] [place], [facility] ME AND [facility] BECAUSE IF YOU DON'T I WILL KILL MYSELF, I NEED TO LEAVE HERE AND YOU NEED TO TAKE ME TO THE [facility], [facility]." AGREED TO TAKE [facility] TO [facility] IMM[facility]ELY AFTER LEAVING. PT COOPERATED WITH RN WITH POST-OP ASSESSMENTS AND ANSWERED QUESTIONS. PT DENIED NAUSEA AND PAIN. PT ABLE TO DRINK APPLE JUICE WITH NO ISSUES. THIS RN LEFT ROOM, PT WAS INSTRUCTED TO SAFELY GET DRESSED, REMAINED AT BEDSIDE. RN IMMEDIATELY TOLD DR. BENITEZ THE SUICIDAL IDEATIONS PT WAS EXPRESSING. DR. BENITEZ CALLED THE [place] [facility], INTRODUCED HERSELF TO PT AND HANDED PT PHONE, PT TALKED TO ARNOLD, CRISIS COUNSELOR, FOR ABOUT 2 MINUTES BEFORE GETTING UPSET AND THROWING PHONE ACROSS THE ROOM. PT DID STATE TO ARNOLD HE WAS HAVING SUICIDAL IDEATIONS. DR. BENITEZ THEN CALLED THE [employer]. RN INSTRUCTED TO BRING THE CAR AROUND TO THE PATIENT PICKUP AREA, PT WAS ENCOURGAGED TO SIT IN THE WHEELCHAIR TO WAIT FOR TO GET THE CAR. RN WAS AWARE POLICE DEPARTMENT WAS ON THEIR WAY TO SPEAK WITH THE PATIENT. RN THERAPUTICALLY ATTEMPTING TO KEEP PT CALM AND WAIT. RN BROUGHT WARM BLANKETS TO PATIENT AND STOOD BY WHEELCHAIR TO MAKE SURE PT WAS SAFE. [employer] [employer] ([employer]) CAME AT 1642, OFFICER ARIAN PELAYO SPOKE WITH PT. DURING CONVERSATION, DR. RICHARDS INFORMED PT THAT HE WILL SENT THE PATHOLOGY FROM TODAY'S TO [facility] FOR PATHOLOGY READINGS. IMMEDIATELY PT APPEARED RELIEVED AND STATED, "THANK YOU, THAT IS ALL I WANTED TO HAPPEN. THAT IS ALL I NEEDED TO HAPPEN, THEY KNOW WHAT TO LOOK FOR AND THEY WILL BE ABLE TO SEE THEM." THE PT'S DEMEANOR CHANGED AND BECAME VERY COOPERATIVE WITH D OFFICER. [employer] FINISHED ASSESSMENT AND DETERMINED THAT THEY DID NOT FIND HIM TO BE SUICIDAL ANYMORE. PT STATED HE WAS EXPERINCING PTSD SYMPTOMS FROM THE ANESTHESIA. PT STATED HE DID NOT WANT TO BE EVALUATED BY THE [place] [facility], HE WAS ADAMANT THAT HE DOES NOT GO TO [place] D/T PAST TREATMENTS HE RECIEVED FROM STAFF. PT ALSO STATED HE HAS TO WORK TOMORROW AND HE KNOWS HE HAS "BILLS TO PAY, I DON'T GET PAID IF I DON'T HAVE WORK, THEN WE WILL LOSE OUR HOUSE. I HAVE NO SICK TIME AND NO PAID TIME OFF. I HAVE TO WORK TOMORROW." PT DENIED FEELING SUICIDAL, EXPRESSED PLANS TO GO TO WORK TOMORROW. PT AGREED THAT IF HE STARTS TO EXPERINCE PTSD OR FEEL SUICIDAL HE WOULD LET HIS KNOW, AND WOULD TAKE HIM TO THE ED. ALL PARTIES AGREED. [facility], DR. BENITEZ, AND ALL FELT SAFE TO SEND PT HOME. PT DISCHARGED TO HOME WITH . PT WAS HYPERTENSIVE DURING PRE-OP, OP, AND SDU ASSESSMENT. OKAY'D TO CONTINUE PROCEDURE. PT STATED HE WAS NERVOUS AND STATED HE HAD NOT TAKEN HIS CARVEDILOL IN TWO DAYS. PT AND BOTH AGREED THAT PT WOULD TAKE HIS BP MEDICATIONS WHEN HE GOT HOME.
[2024-07-18 18:12] VITALS: BP 172/103
== END 2024-07-18 17:50 | disposition home or self-care (01) ==
LOC: ORSCSDS 14:09
PROVIDERS: Internal Medicine Gastroenterology
PROC: 0DBL8ZX Excision of Transverse Colon, Via Natural or Artificial Opening Endoscopic, Diagnostic (ICD-10-PCS; principal; 2024-07-18 15:15)
PROC: 0DBM8ZX Excision of Descending Colon, Via Natural or Artificial Opening Endoscopic, Diagnostic (ICD-10-PCS; principal; 2024-07-18 15:15)
PROC: 0DBE8ZX Excision of Large Intestine, Via Natural or Artificial Opening Endoscopic, Diagnostic (ICD-10-PCS; principal; 2024-07-18 15:15)
PROC: 0DBK8ZX Excision of Ascending Colon, Via Natural or Artificial Opening Endoscopic, Diagnostic (ICD-10-PCS; principal; 2024-07-18 15:15)
DX: R10.32 Left lower quadrant pain (principal); D12.2 Benign neoplasm of ascending colon; D12.3 Benign neoplasm of transverse colon; K57.30 Diverticulosis of large intestine without perforation or abscess without bleeding; K64.4 Residual hemorrhoidal skin tags; R19.4 Change in bowel habit; E11.9 Type 2 diabetes mellitus without complications; K21.9 Gastro-esophageal reflux disease without esophagitis; Z86.0101 Personal history of adenomatous and serrated colon polyps; Z79.82 Long term (current) use of aspirin; Z79.85 Long-term (current) use of injectable non-insulin antidiabetic drugs
CPT/HCPCS: 82947; 88305; J2001; J2003; J2704; J7120

== ENCOUNTER 2025-01-05 21:25 | Inpatient (IN) | payer OTHER ==
[~2025-01-05] VITALS: Ht 172.7 cm; Wt 87.3 kg
[~2025-01-05 21:25] MED LIST changes: +ASPIR 8181 M1; -Lactated Ringer's 1,000 ML IV ONE; -Lidocaine 2% 5 ML SDV ONE; -Lidocaine HCl/Pf 1% 5 ML VIAL ONE; +OMEP20ER PO
[2025-01-05 22:14] LABS: Base Excess Venous 5.2 mmol/L; PCO2 Venous 51.8 mmHg (38-42); pH Blood Venous 7.38 (7.34-7.37)
[2025-01-05 22:19] LABS: Hematocrit 43.3 % (37.0-53.0); Hemoglobin 14.8 g/dL (13.5-17.5); Mean Corpuscular HGB 30.1 pg (26.0-34.0); Mean Corpuscular HGB Conc 34.2 g/dL (31.5-36.5); Mean Corpuscular Volume 88 fL (80-100); Mean Platelet Volume 11.1 fL (9.1-12.4); Platelet Count 305 K/mm3 (150-400); RDW Coefficient Variation 12.9 % (11.7-14.2); RDW Standard Deviation 41.5 fL (35.1-46.3); Red Blood Cell Count 4.92 M/mm3 (4.30-5.90); White Blood Cell Count 17.88 K/mm3 (4.00-11.30)
[2025-01-05 22:37] LABS: International Normalized Ratio 1.05; Prothrombin Time Results 11.2 Sec (9.7-11.5)
[2025-01-05 22:39] LABS: Ethanol (Alcohol), Blood, Med <3 mg/dL; Salicylate 2.1 mg/dL (2.8-20.0)
[2025-01-05] MEDS ORDERED: FLU VACC TS2024-25(6MOS UP)/PF 45 MCG/0.5 ML SYRINGE IM ONE (22:40)
[2025-01-05 22:48] LABS: Acetaminophen, Random <2.0 ug/mL (10.0-30.0); Alanine Aminotransfer (ALT/SGP 222 U/L (12-78); Albumin, Blood 3.5 g/dL (3.4-5.0); Albumin/Globulin Ratio 0.9 (0.8-1.8); Alk Phos 84 U/L (50-136); Anion Gap 6 mmol/L (3-11); Aspartate Aminotrans (AST/SGOT 235 U/L (12-37); Bilirubin, Total 0.4 mg/dL (0.1-1.0); Blood Urea Nitrogen 40 mg/dL (8-24); Bun/Creatinine Ratio 36.7 (12.0-20.0); CO2, Blood 30 mmol/L (21-32); Chloride, Blood 106 mmol/L (98-108); Creatinine, Blood 1.09 mg/dL (0.60-1.20); Globulin, Blood 3.7 g/dL (2.2-4.0); Glomerular Filtration Rate 79 (60-); Glucose, Blood 197 mg/dL (70-99); Potassium, Blood 3.1 mmol/L (3.5-5.5); Sodium, Blood 139 mmol/L (136-145); Total Protein, Blood 7.2 g/dL (6.4-8.2)
[2025-01-05 22:59] LABS: BASOPHILS PERCENT MAN 0 % (0-2); EOSINOPHILS ABSOLUTE MAN 0.17 K/mm3 (0.00-0.68); EOSINOPHILS PERCENT MAN 1 % (0-6); LYMPHOCYTES PERCENT MAN 28 % (21-46); MONOCYTES ABSOLUTE MAN 2.14 K/mm3 (0.16-1.47); MONOCYTES PERCENT MAN 12 % (4-13); NEUTROPHILS ABSOLUTE MAN 10.54 K/mm3 (1.96-9.15); SEG NEUTROPHILS PERCENT MAN 59 % (41-73); TOTAL CELLS COUNTED 100
[2025-01-05] MEDS ORDERED: NS 500 ML IV SCH (23:00)
[2025-01-05] MEDS ORDERED: Haloperidol Lactate Inj. 5 MG/ML Injection IV ONE (23:00)
[2025-01-05 23:05] LABS: Magnesium, Blood 2.2 mg/dL (1.6-2.4)
[2025-01-05] MEDS ORDERED: Potassium Chloride 40 MEQ in NS 250 ML IV ONE (23:10)
[2025-01-05 23:30] VITALS: BP 146/97
--- NOTE | 2025-01-05 23:33 | NUR ---
ADMIT RECEIVED FROM ER VIA GURJORGE. PT ROUSES TO VERBAL STIMULI, BUT QUICKLY FALLS BACK ASLEEP. ORIENTED TO SELF ONLY AT THIS TIME. MOVES ALL EXTREMITES. OCCASIONALLY FOLLOWS SIMPLE COMMANDS. SPEECH IS MUMBLED. DOES NOT RESPOND TO QUESTIONS AT THIS TIME. MONITOR SHOWS ST, RATE 100s. AFEBRILE. BP STABLE. RA SATS STABLE. RESPIRATIONS EVEN AND UNLABORED. 1:1 SITTER AT BEDSIDE. SEE ADMIT ASSESSMENT FOR FULL ASSESSMENT.
[2025-01-05 23:41] VITALS: BP 130/64
[2025-01-06] VITALS (14 sets, daily range): BP systolic 116–169; BP diastolic 81–113
[2025-01-06] MEDS ORDERED: DULO60 PO (01:42)
[2025-01-06] MEDS ORDERED: ATOMOXETINE HCL80 M1 PO (01:43)
[2025-01-06 05:21] LABS: BASOPHILS ABSOLUTE AUTO 0.07 K/mm3 (0.00-0.23); BASOPHILS PERCENT AUTO 0 % (0-2); EOSINOPHILS ABSOLUTE AUTO 0.25 K/mm3 (0.00-0.68); EOSINOPHILS PERCENT AUTO 2 % (0-6); Hematocrit 40.3 % (37.0-53.0); Hemoglobin 14.1 g/dL (13.5-17.5); IMMATURE GRAN ABSOLUTE AUTO 0.07 K/mm3 (0.00-0.10); IMMATURE GRAN PERCENT AUTO 0 % (0-1); LYMPHOCYTES ABSOLUTE AUTO 4.41 K/mm3 (0.84-5.20); LYMPHOCYTES PERCENT AUTO 27 % (21-46); MONOCYTES ABSOLUTE AUTO 1.89 K/mm3 (0.16-1.47); MONOCYTES PERCENT AUTO 12 % (4-13); Mean Corpuscular HGB 30.8 pg (26.0-34.0); Mean Corpuscular Volume 88 fL (80-100); Mean Platelet Volume 11.1 fL (9.1-12.4); NEUTROPHILS ABSOLUTE AUTO 9.73 K/mm3 (1.96-9.15); NEUTROPHILS PERCENT AUTO 59 % (41-73); Platelet Count 274 K/mm3 (150-400); RDW Coefficient Variation 13.2 % (11.7-14.2); Red Blood Cell Count 4.58 M/mm3 (4.30-5.90); White Blood Cell Count 16.42 K/mm3 (4.00-11.30)
[2025-01-06 05:33] LABS: International Normalized Ratio 1.16; Prothrombin Time Results 12.3 Sec (9.7-11.5)
[2025-01-06 05:44] LABS: Salicylate 2.2 mg/dL (2.8-20.0)
[2025-01-06 05:50] LABS: Alanine Aminotransfer (ALT/SGP 183 U/L (12-78); Albumin, Blood 2.7 g/dL (3.4-5.0); Albumin/Globulin Ratio 0.8 (0.8-1.8); Alk Phos 67 U/L (50-136); Anion Gap 9 mmol/L (3-11); Aspartate Aminotrans (AST/SGOT 146 U/L (12-37); Bilirubin, Direct <0.1 mg/dL (0.0-0.3); Bilirubin, Indirect Unable to Calculate mg/dL (0.1-0.7); Bilirubin, Total 0.4 mg/dL (0.1-1.0); Blood Urea Nitrogen 31 mg/dL (8-24); Bun/Creatinine Ratio 37.2 (12.0-20.0); CO2, Blood 27 mmol/L (21-32); Calcium, Blood 8.1 mg/dL (8.5-10.1); Chloride, Blood 108 mmol/L (98-108); Creatinine, Blood 0.83 mg/dL (0.60-1.20); Globulin, Blood 3.3 g/dL (2.2-4.0); Glomerular Filtration Rate 102 (60-); Glucose, Blood 169 mg/dL (70-99); Potassium, Blood 3.2 mmol/L (3.5-5.5); Sodium, Blood 141 mmol/L (136-145)
--- NOTE | 2025-01-06 05:55 | NUR ---
BLADDER SCAN/ATTEMPTED STRAIGHT CATH PT HAS NOT VOIDED T/O SHIFT. BLADDER SCAN DONE AT THIS TIME- 950MLs IN BLADDER. ATTEMPTED TO WAKE PT UP TO VOID, BUT PT WOULD ONLY WAKE UP FOR A FEW SECONDS AND THEN FALL BACK ASLEEP. ATTEMPTED STRAIGHT CATH AT THIS TIME, BUT PT WAKES UP, YELLS, AND THEN FALLS BACK ASLEEP. NO URINE OUTPUT WITH STRAIGHT CATH. ATTEMPTED TO PLACE A COUDE WITH SAME RESULTS. PT STATES THAT HE HAD A TURP DONE 6-7 WEEKS AGO, BUT HE WAS NOT ORIENTED TO PLACE OR DATE/TIME. AFTER REPEATED ATTEMPTS TO WAKE PT UP ENOUGH TO URINATE, HE FINALLY VOIDED 400MLS YELLOW URINE.
[2025-01-06 06:22] LABS: Source, Urine Clean Catch
[2025-01-06 06:31] LABS: Appearance, Urine Hazy (Clear); Bilirubin, Urine Neg (Neg); Blood, Urine 3+ (Neg); Color, Urine Yellow (P-Yellow); Glucose Qualitative, Urine 2+ (Neg); Ketones, Urine Neg (Neg); Leukocyte Esterase, Urine 1+ (Neg); Nitrite, Urine Neg (Neg); Protein, Urine 1+ (Neg); Specific Gravity, Urine 1.025 (1.003-1.022); Urobilinogen, Urine NORM (Normal)
--- NOTE | 2025-01-06 06:31 | NUR ---
SHIFT SUMMARY PT CONTINUES TO WAKE UP FOR SHORT PERIODS BUT THEN QUICKLY FALLS BACK ASLEEP. PT IS AGITATED WHEN AWAKE. STATES "I HATE MERCY" AND "YOU GUYS DON'T KNOW WHAT YOU'RE DOING." HYPERTENSIVE WHEN AGITATED. MONITOR SHOWS NSR, RATE 90s. PLACED ON O2 2L NC EARLIER IN SHIFT FOR PERIODS OF SLEEP APNEA AND DESATURATIONS. AFEBRILE. ACETYLCYSTEINE INFUSING PER PHARMACY. 1:1 SITTER AT BEDSIDE. PT IS ON A 2MD HOLD. PLAN OF CARE ONGOING.
[2025-01-06 06:40] LABS: Bacteria Few /hpf; Renal Epithelial Rare /hpf (0-Rare); Squamous Epithelial Cells Rare /hpf (Few)
[2025-01-06 06:55] LABS: U Amphetamine Screen DETECTED; U Barbituate Screen Not Detected; U Benzodiazapine Screen DETECTED; U Buprenorphine Screen Not Detected; U Cannabinoids Screen Not Detected; U Cocaine Screen Not Detected; U Methadone Screen Not Detected; U Methamphetamine Screen DETECTED; U Opiates Screen Not Detected; U Oxycodone Screen Not Detected; U Phencyclidine Screen Not Detected
[2025-01-06] MEDS ORDERED: Insulin Human Lispro 100 Units/ML 3ML Syringe SC SCH (07:30)
[2025-01-06] MEDS ORDERED: Potassium Chloride 40 MEQ in NS 250 ML IV ONE (08:05)
[2025-01-06] MEDS ORDERED: Lactated Ringer's 1,000 ML IV SCH (08:05)
[2025-01-06] MEDS ORDERED: OLANZapine 10 MG Vial IM ONE (08:25)
[2025-01-06] MEDS ORDERED: Haloperidol Lactate Inj. 5 MG/ML Injection IV ONE (08:25)
[2025-01-06] MEDS ORDERED: LORazepam 2 MG/ML 1ML Injection IV PRN (08:25)
--- NOTE | 2025-01-06 08:45 | NUR ---
Attempted assessment. Pt refusing all care this morning, will not let anyone assess him or give him medications. Pt threatening to break IV pumps and room window. Security called to ICU for safety. Pt contacted, she reported [facility] "[facility]" their house and broke many items. research investigator and this RN attempted to verbally re-direct patient multiple times without success. Dr. Carl called to come evaluate pt. Pt asking for food and apple juice, safety meal tray provided with juice. Currently security remaining in ICU for safety.
[2025-01-06] MEDS ORDERED: Enoxaparin 40 MG/0.4 ML SYR SC SCH (09:00)
[2025-01-06] MEDS ORDERED: TRAZ50 PO (09:27)
[2025-01-06] MEDS ORDERED: CARV6.25 PO (09:28)
[2025-01-06] MEDS ORDERED: LOSA50 PO (09:29)
--- NOTE | 2025-01-06 11:25 | NUR ---
Summary. Pt continued to decline care and verbally abuse staff members until seen by Dr. Carl. 2MD hold lifted and pt decided to leave AMA. Both peripheral IV's removed and dressed prior to patient leaving. All personal belongings returned to patient prior to departure.
== END 2025-01-06 11:00 | disposition left against medical advice (07) | DRG 917 ==
LOC: ER 21:25 → ICUE 22:59
PROVIDERS: Student in an Organized Health Care Education/Training Program; ADMIT Internal Medicine
DX: T39.1X2A Poisoning by 4-Aminophenol derivatives, intentional self-harm, initial encounter (principal); G92.9 Unspecified toxic encephalopathy; N17.9 Acute kidney failure, unspecified; R45.851 Suicidal ideations; E87.3 Alkalosis; I10 Essential (primary) hypertension; E87.6 Hypokalemia; R74.01 Elevation of levels of liver transaminase levels; I25.10 Atherosclerotic heart disease of native coronary artery without angina pectoris; F15.229 Other stimulant dependence with intoxication, unspecified; T52.92XA Toxic effect of unspecified organic solvent, intentional self-harm, initial encounter; K21.9 Gastro-esophageal reflux disease without esophagitis; E11.65 Type 2 diabetes mellitus with hyperglycemia; F17.200 Nicotine dependence, unspecified, uncomplicated; D72.829 Elevated white blood cell count, unspecified; I25.2 Old myocardial infarction; Z53.29 Procedure and treatment not carried out because of patient's decision for other reasons; Z88.2 Allergy status to sulfonamides; Z88.8 Allergy status to other drugs, medicaments and biological substances; Z79.85 Long-term (current) use of injectable non-insulin antidiabetic drugs; Z79.82 Long term (current) use of aspirin
CPT/HCPCS: 80053; 80320; 81001; 82248; 82803; 83735; 85025; 85610; 85730; 87086; 93005; 93010; 99285-25; A6590; A9270; C1751; G0480; J0132; J1630; J3480; J7040; J7050; J7060; J7070

== ENCOUNTER 2025-06-10 00:12 | Emergency (ER) | payer OTHER ==
[~2025-06-10] VITALS: Ht 167.6 cm; Wt 90.7 kg
[~2025-06-10 00:12] MED LIST changes: +ATOMOXETINE HCL80 M1 PO; +CARV6.25 PO; +DULO60 PO; +HYDR1TAB94 PO; +LOSA50 PO; +TRAZ50 PO
[2025-06-10 00:57] LABS: BASOPHILS ABSOLUTE AUTO 0.07 K/mm3 (0.00-0.23); BASOPHILS PERCENT AUTO 1 % (0-2); EOSINOPHILS ABSOLUTE AUTO 0.28 K/mm3 (0.00-0.68); EOSINOPHILS PERCENT AUTO 2 % (0-6); Hematocrit 44.7 % (37.0-53.0); Hemoglobin 15.1 g/dL (13.5-17.5); IMMATURE GRAN ABSOLUTE AUTO 0.05 K/mm3 (0.00-0.10); IMMATURE GRAN PERCENT AUTO 0 % (0-1); LYMPHOCYTES ABSOLUTE AUTO 4.74 K/mm3 (0.84-5.20); LYMPHOCYTES PERCENT AUTO 33 % (21-46); MONOCYTES ABSOLUTE AUTO 1.19 K/mm3 (0.16-1.47); MONOCYTES PERCENT AUTO 8 % (4-13); Mean Corpuscular HGB Conc 33.8 g/dL (31.5-36.5); Mean Corpuscular Volume 88 fL (80-100); NEUTROPHILS ABSOLUTE AUTO 7.99 K/mm3 (1.96-9.15); NEUTROPHILS PERCENT AUTO 56 % (41-73); NRBC ABSOLUTE 0.00 K/mm3 (0.00-0.02); NRBC Auto 0.0 /100 WBC (0.0-0.2); Platelet Count 355 K/mm3 (150-400); RDW Coefficient Variation 13.2 % (11.7-14.2); RDW Standard Deviation 42.5 fL (35.1-46.3)
[2025-06-10 01:15] VITALS: BP 95/68
[2025-06-10 01:17] LABS: Alanine Aminotransfer (ALT/SGP 27.0 U/L (12-78); Albumin, Blood 3.5 g/dL (3.4-5.0); Albumin/Globulin Ratio 0.9 (0.8-1.8); Anion Gap 9.0 mmol/L (3-11); Aspartate Aminotrans (AST/SGOT 19.0 U/L (12-37); Bilirubin, Total 0.5 mg/dL (0.1-1.0); Blood Urea Nitrogen 24.0 mg/dL (8-24); CO2, Blood 25.0 mmol/L (21-32); Calcium, Blood 8.7 mg/dL (8.5-10.1); Chloride, Blood 108.0 mmol/L (98-108); Creatinine, Blood 1.45 mg/dL (0.60-1.20); Globulin, Blood 3.9 g/dL (2.2-4.0); Glucose, Blood 148.0 mg/dL (70-99); Potassium, Blood 3.3 mmol/L (3.5-5.5); Sodium, Blood 139.0 mmol/L (136-145); Total Protein, Blood 7.4 g/dL (6.4-8.2)
[2025-06-10] MEDS ORDERED: NS 1,000 ML IV SCH (02:00)
== END 2025-06-10 02:13 | disposition left against medical advice (07) ==
LOC: ER 00:12
PROVIDERS: Emergency Medicine
DX: I95.9 Hypotension, unspecified (principal); E86.0 Dehydration; K21.9 Gastro-esophageal reflux disease without esophagitis; I10 Essential (primary) hypertension; E11.9 Type 2 diabetes mellitus without complications; F17.210 Nicotine dependence, cigarettes, uncomplicated; Z88.2 Allergy status to sulfonamides; Z88.8 Allergy status to other drugs, medicaments and biological substances; Z79.899 Other long term (current) drug therapy; Z79.82 Long term (current) use of aspirin; Z59.89 Other problems related to housing and economic circumstances; Z53.29 Procedure and treatment not carried out because of patient's decision for other reasons
CPT/HCPCS: 80053; 85025; 93005; 93010; 99283-25